=== PATIENT | female | born 1945 | race African-American/Black ===

== ENCOUNTER → 2018-01-08 | Outpatient (CLI) | payer MEDICARE | LOC: MAMMO 09:11 | PROVIDERS: ATTEND Internal Medicine | DX: Z12.31 Encounter for screening mammogram for malignant neoplasm of breast (principal) | CPT/HCPCS: 77067 ==

== ENCOUNTER → 2018-08-06 | Day surgery (SDC) | payer MEDICARE ==
[2018-08-05 12:23] LABS: BASOPHILS # (AUTO) 0.1 (0.0-0.1); BASOPHILS % 1.3 % (0.0-1.0); EOSINOPHILS # (AUTO) 0.2 (0.0-0.4); EOSINOPHILS % 3.8 % (0.0-6.0); HEMATOCRIT 35.9 % (34.2-44.1); HEMOGLOBIN 11.5 g/dL (12.0-16.0); LYMPHOCYTES # (AUTO) 2.2 (1.0-3.2); LYMPHOCYTES % 41.5 % (18.0-39.1); MEAN CORPUSCULAR VOLUME 90.4 fL (81-99); MONOCYTES # (AUTO) 0.4 (0.2-0.8); NEUTROPHILS # (AUTO) 2.5 (2.1-6.9); NEUTROPHILS % 46.2 % (38.7-80.0); PLATELET COUNT 254 x10e3/uL (140-360); RED BLOOD COUNT 3.97 x10e6/uL (3.6-5.1); RED CELL DISTRIBUTION WIDTH 14.4 % (11.7-14.4)
[2018-08-05 12:35] LABS: INR 0.87; PROTHROMBIN TIME 12.6 seconds (11.9-14.5)
[2018-08-05 12:46] LABS: ALANINE AMINOTRANSFERASE 15 IU/L (0-55); ALBUMIN/GLOBULIN RATIO 1.5 (0.8-2.0); ALKALINE PHOSPHATASE 77 IU/L (40-150); ANION GAP 12.9 mmol/L (8-16); BLOOD UREA NITROGEN 15 mg/dL (7-26); BUN/CREATININE RATIO 17 (6-25); CARBON DIOXIDE 25 mmol/L (22-29); CHLORIDE 108 mmol/L (98-107); EST GLOMERULAR FILTRATION RATE > 60 ML/MIN (60-); GLUCOSE 106 mg/dL (74-118); POTASSIUM 4.9 mmol/L (3.5-5.1); SODIUM 141 mmol/L (136-145)
[2018-08-06] VITALS (12 sets, daily range): BP systolic 91–155; BP diastolic 45–56
[~2018-08-06] VITALS: Ht 167.6 cm; Wt 71.2 kg
[~2018-08-06] MED LIST: ADVAIR 250-501 EACH INH; ASPIR 8181 MG PO; CENTRUM SILVER1 EAC3 PO; FENTANYL CITRATE/PF 100MCG/2 ML INJ ONE; FERROUS SULFAT325 MG PO; GLIPIZIDE PO; HEPARIN SOD/SOD CHLORIDE 2,000 ML ONE; HYDROCODONE/APAP 5MG-325MG TAB ONE; IOPAMIDOL 370 MG/ML 200 ML INFUS..BTL INJ ONE; LACTULOSE10 GM/151 PO; LIDOCAINE HCL 1% LOCAL INJ 20 ML VIAL ONE; LIPITOR40 MG PO; LOSARTAN POTASS25 MG PO; METFORMIN PO; METOPROLOL SUCC50 MG PO; MIDAZOLAM HCL 2 MG/2 ML VIAL ONE; SODIUM CHLORIDE 0.9% 1000ML 1,000 ML ONE; TRAZODONE HCL50 MG PO; ULTRAM50 MG PO; VENTOLIN HFA18 GM INH; VITAMIN D1000 UNI1 PO; VITAMIN D31000 UNIT PO
--- OUTSIDE RECORDS SUMMARY | 2018-08-06 06:16 | XMS REPORT ---
Author [facility] Address Unknown Phone Unavailable Care Team Providers Care Transcribing Operators Supervisor Name Role Phone EDSON MAE Unavailable Unavailable Problems This patient has no known problems. Allergies, Adverse Reactions, Alerts This patient has no known allergies or adverse reactions. Medications This patient has no known medications. Results Test Description Test Time Test Comments Text Results Atomic Results Result Comments MAMMOGRAPHY DIGITAL SCR BILAT 2018-01-08 09:47:00 [place] [address] Patient Name: RADHAMES NIX MR #: [id number] : 1945 Age/Sex: 72/F Req #: [id number] [facility] Physician: Ordered by: EDSON PELAEZ MD Report #: [id number] Location: MAMMO Room/Bed: Procedure: [id number] MG/MAMMOGRAPHY DIGITAL SCR BILAT Exam Date: 01/08/18 Exam Time: 0920 REPORT STATUS: Signed #[id number] - MGSCRBIL #BILATERAL DIGITAL SCREENING MAMMOGRAM WITH CAD: 01/08/2018 CLINICAL: Routine screening. Comparison is made to exams dated: 10/19/2016 mammogram, 03/24/2016 mammogram, 08/27/2015 mammogram and 07/15/2015 mammogram - [facility]. Current study contains 4 films. There are scattered fibroglandular elements in both breasts. Current study was also evaluated with a Computer Aided Detection (CAD) system. There are benign calcifications in both breasts. There also is a benign nodule in the right breast. Scar markers are present on both breasts. No significant masses, calcifications, or other findings are seen in either breast. There has been no significant interval change. IMPRESSION: BENIGN There is no mammographic evidence of malignancy. A 1 year screening mammogram is recommended. The patient will be notified by letter of the results. Laurel Colvin Jr., D.O. cw/:01/11/2018 12:09:29 [employer] Machine Operator: Katrina LAZCANO)(M), [facility] letter sent: Compared to Prior B9 Mammogram BI-RADS: 2 Benign Dictated By: LAUREL COLVIN DO 1207 Transcribed By: AWAIS on 01/11/18 1203 COPY TO: EDSON MAE MD
--- NOTE | 2018-08-06 10:48 | NUR ---
correction to 1030 VS. Puncture site to R femoral not L femoral artery
--- NOTE | 2018-08-06 14:45 | Operative Report ---
DATE OF PROCEDURE: August 06, 2018 CARDIAC CATHETERIZATION PROCEDURES PERFORMED 1. Selective coronary angiography x2. 2. Left heart catheterization. 3. Left ventriculogram. SEDATION 1. Midazolam 2 mg. 2. Fentanyl 75 mcg. INDICATION 1. Abnormal nuclear stress. 2. Hypertrophic cardiomyopathy. CONSENT: Informed consent was obtained and documented in the chart. PROCEDURE IN DETAIL: The patient was brought to the cardiac catheterization laboratory in a fasting state after written informed consent was obtained. Bilateral groins were prepped and draped in the usual sterile fashion. Lidocaine 1% was used to achieve local anesthesia. The right common femoral artery was accessed using ultrasound guidance with a micropuncture needle. A 5-Greek sheath was placed via modified Seldinger technique. A 5-Greek JL-4 was inserted and advanced into the ascending aorta. Attempts were made to cannulate the left main coronary artery under fluoroscopic guidance. This was unsuccessful. The JL-4 was exchanged for a 5-Greek JL-5. This was inserted and advanced into the ascending aorta. The left main coronary artery was cannulated under fluoroscopic guidance. Selective coronary angiography was performed. The JL-5 was removed, and a 5-Greek JR-4 was inserted and advanced into the ascending aorta. The right coronary artery was cannulated under fluoroscopic guidance. Selective coronary angiography was performed. The JR-4 was removed, and a 5-Greek pigtail was inserted and advanced into the left ventricle under fluoroscopic guidance. The pigtail was exchanged for a multipurpose over an exchange-length Wholey wire. Hemodynamic measurements were obtained in the left ventricular apex as well as the LVOT. The multipurpose was then exchanged for a 5-Greek pigtail catheter over the Wholey wire, and LV-gram was performed. The JL-4 was removed. Angiogram was performed of the right external iliac artery. The 5-Greek sheath was removed, and manual pressure was held until adequate hemostasis was achieved. The patient tolerated the procedure well without any immediate complications. FINDINGS 1. The left main coronary artery bifurcates into the left anterior descending and circumflex arteries. The left anterior descending is a medium-caliber vessel with 20% to 30% and 30% to 40% stenoses in the mid. The circumflex is a small vessel that gives rise to a small OM1. There is no angiographic evidence of disease. 2. The RCA is a large-caliber vessel that gives rise to the PDA. There was no evidence of coronary artery disease. 3. Left ventricle: LV 190/4 mmHg with LVEDP 36 mmHg. Intraventricular gradient was noted with LV pressures 124/6 mmHg with LVEDP of 33 mmHg in the LVOT. There was no gradient across the aortic valve on pullback. 4. LVEF greater than 70%. CONCLUSION 1. Nonobstructive coronary artery disease. 2. Hypertrophic cardiomyopathy. RECOMMENDATIONS: Medical management and risk-factor modification. Job#: [id number]
== END | disposition home or self-care (01) ==
LOC: CATH LAB 06:15
PROVIDERS: ATTEND Internal Medicine
DX: I25.10 Atherosclerotic heart disease of native coronary artery without angina pectoris (principal); I42.2 Other hypertrophic cardiomyopathy; R94.39 Abnormal result of other cardiovascular function study; I10 Essential (primary) hypertension; E78.5 Hyperlipidemia, unspecified; E11.9 Type 2 diabetes mellitus without complications; Z88.0 Allergy status to penicillin; Z01.812 Encounter for preprocedural laboratory examination; Z79.82 Long term (current) use of aspirin; Z79.84 Long term (current) use of oral hypoglycemic drugs; Z87.891 Personal history of nicotine dependence
CPT/HCPCS: 36415; 80053; 85025; 85610; 93458; C1769 ×2; J2001; J2250; J7030; Q9967